=== PATIENT | female | born 1980 | race Caucasian/White ===

== ENCOUNTER 2022-05-16 13:01 | Emergency (ER) | payer MEDICAID, OTHER ==
[~2022-05-16] VITALS: Ht 165.1 cm; Wt 95.3 kg
[2022-05-16 13:01] VITALS: BP 150/60
[2022-05-16 14:01] LABS: Urine Bacteria NONE SEEN /hpf (None Seen); Urine Blood Negative /uL (Negative); Urine Specific Gravity 1.009 (1.001-1.035); Urine WBC <1 /hpf (0 - 5)
[2022-05-16] MEDS ORDERED: IBUP800T27 PO (14:30)
[2022-05-16] MEDS ORDERED: CYCLOBENZAPRINE HCL 10 MG TAB PO ONE (14:30)
[2022-05-16] MEDS ORDERED: KETOROLAC TROMETH 60MG/2ML VIAL IM ONE (14:30)
[2022-05-16] MEDS ORDERED: METH750T22 PO (14:30)
[2022-05-16] MEDS ORDERED: CEPH-509 PO (14:37)
== END 2022-05-16 14:47 | disposition home or self-care (01) ==
LOC: ER 13:01
DX: M79.10 Myalgia, unspecified site (principal); Z76.0 Encounter for issue of repeat prescription; Z90.89 Acquired absence of other organs; Z90.49 Acquired absence of other specified parts of digestive tract; Z95.0 Presence of cardiac pacemaker; F17.290 Nicotine dependence, other tobacco product, uncomplicated
CPT/HCPCS: 81001; 81025; 96372; 99283; J1885

== ENCOUNTER 2022-05-19 20:58 | Emergency (ER) | payer MEDICAID ==
[~2022-05-19] VITALS: Ht 165.1 cm; Wt 68.9 kg
[~2022-05-19 20:58] MED LIST: CEPH-509 PO; IBUP800T27 PO; METH750T22 PO
[2022-05-19 22:46] LABS: Basophils # (auto) 0 10 ^3/uL (0-0.2); Basophils % (auto) 0.6 % (0.0-2.0); Eosinophils # (auto) 0 10 ^3/uL (0-0.8); Hematocrit 34.3 % (36.0-46.0); Hemoglobin 11.1 g/dL (12.2-16.2); Lymphocytes # (auto) 2.8 10 ^3/uL (0.4-5.4); Mean Corpuscular Hemoglobin 23.3 pg (28.0-32.0); Mean Corpuscular Hgb Conc. 32.3 g/dL (32.0-36.0); Monocytes # (auto) 0.5 10 ^3/uL (0-1.3); Monocytes % (auto) 6.4 % (0.0-12.0); Neutrophils # (auto) 4.2 10 ^3/uL (1.6-8.6); Nucleated Red Blood Cells % 0.1 %; Red Blood Cells 4.76 10^6/uL (4.0-5.20); Red Cell Distribution Width 16.7 % (11.8-14.3); White Blood Cell 7.6 10^3/uL (4.4-10.8)
[2022-05-19 23:03] LABS: Albumin 3.5 g/dL (3.4-5.0); Calcium 8.2 mg/dL (8.5-10.1); Potassium 3.9 mmol/L (3.5-5.1)
[2022-05-19 23:05] LABS: Bilirubin, Total 0.3 mg/dL (0.2-1.0); Total Protein 6.6 g/dL (6.4-8.2)
[2022-05-20 02:44] VITALS: BP 101/43
[2022-05-20] MEDS ORDERED: POLY33504 PO (05:00)
[2022-05-20] MEDS ORDERED: HYDR2.5C39 TOP (05:00)
== END 2022-05-20 04:34 | disposition left against medical advice (07) ==
LOC: ER 20:58 → EDUNIT# 20:58 → EDBD 20:58 → ER 05-20 04:34
DX: K62.89 Other specified diseases of anus and rectum (principal); K64.4 Residual hemorrhoidal skin tags; Z90.49 Acquired absence of other specified parts of digestive tract; Z90.89 Acquired absence of other organs; Z95.0 Presence of cardiac pacemaker; Z88.0 Allergy status to penicillin; Z88.1 Allergy status to other antibiotic agents
CPT/HCPCS: 36415; 71045; 80053; 84484; 85025; 93005

== ENCOUNTER 2022-06-01 09:22 | Emergency (ER) | payer SELFPAY ==
[~2022-06-01] VITALS: Ht 170.2 cm; Wt 67.8 kg
[~2022-06-01 09:22] MED LIST changes: +HYDR2.5C39 TOP; +POLY33504 PO
[2022-06-01] MEDS ORDERED: SODIUM CHLORIDE 0.9% 1,000 ML IV ONE (09:45)
[2022-06-01] MEDS ORDERED: MECLIZINE HCL 25 MG TAB PO ONE (09:45)
[2022-06-01 10:39] LABS: Hemoglobin 11.3 g/dL (12.2-16.2); Nucleated Red Blood Cells % 0.1 %; White Blood Cell 4.7 10^3/uL (4.4-10.8)
[2022-06-01 10:56] LABS: Potassium 3.6 mmol/L (3.5-5.1)
[2022-06-01 11:00] LABS: Basophils # (auto) 0 10 ^3/uL (0-0.2); Eosinophils # (auto) 0 10 ^3/uL (0-0.8); Lymphocytes # (auto) 1.1 10 ^3/uL (0.4-5.4); Lymphocytes % (auto) 23.9 % (10.0-50.0); Mean Corpuscular Hemoglobin 21.9 pg (28.0-32.0); Mean Corpuscular Hgb Conc. 30.4 g/dL (32.0-36.0); Monocytes # (auto) 0.3 10 ^3/uL (0-1.3); Monocytes % (auto) 6.4 % (0.0-12.0); Neutrophils # (auto) 3.2 10 ^3/uL (1.6-8.6); Neutrophils % (auto) 68.7 % (37.0-80.0); Red Blood Cells 5.15 10^6/uL (4.0-5.20); Red Cell Distribution Width 16.7 % (11.8-14.3)
[2022-06-01 11:01] LABS: Albumin 3.7 g/dL (3.4-5.0); BUN/Creatinine Ratio 16.4; Calcium 8.6 mg/dL (8.5-10.1)
[2022-06-01 11:03] LABS: Bilirubin, Total 0.7 mg/dL (0.2-1.0); Total Protein 6.9 g/dL (6.4-8.2)
[2022-06-01 11:29] LABS: Urine Bacteria NONE SEEN /hpf (None Seen); Urine Blood 3+ /uL (Negative); Urine Budding Yeast MANY /hpf (None Seen); Urine Mucus FEW (None Seen); Urine Specific Gravity 1.024 (1.001-1.035); Urine WBC 323 /hpf (0 - 5)
[2022-06-01] MEDS ORDERED: levoFLOXacin 500MG 100 ML IV ONE (12:00)
[2022-06-01 12:02] VITALS: BP 133/59
[2022-06-01] MEDS ORDERED: NITR-87 PO (13:02)
[2022-06-01] MEDS ORDERED: MECL12.514 PO (13:02)
== END 2022-06-01 13:26 | disposition home or self-care (01) ==
LOC: EDBD 09:22 → ER 09:22
DX: R42 Dizziness and giddiness (principal); N39.0 Urinary tract infection, site not specified; F17.290 Nicotine dependence, other tobacco product, uncomplicated; Z90.89 Acquired absence of other organs; Z90.49 Acquired absence of other specified parts of digestive tract; Z95.1 Presence of aortocoronary bypass graft; Z98.890 Other specified postprocedural states; Z95.0 Presence of cardiac pacemaker
CPT/HCPCS: 36415; 70450; 80053; 81001; 85025; 93005; 96361; 96365; 99285; J1956; J7030; J8597